=== PATIENT | male | born 1975 | race African-American/Black ===

== ENCOUNTER 2020-10-01 10:31 | Inpatient (IN) | payer BC ==
[2020-10-01 11:39] LABS: Hemoglobin 13.7 g/dL (14.0-18.0); Mean Corpuscular HGB CONC 30.7 g/dL (32.0-36.0); Mean Corpuscular Hemoglobin 24.1 pg (27.0-31.0); Mean Corpuscular Volume 78.6 fL (78.0-98.0); Mean Platelet Volume 9.7 fL (7.4-10.4); Platelet Count 184 thou/uL (130-400); RBC Distribution Width 12.3 % (11.5-14.5); Red Blood Cell (RBC) Count 5.67 mill/uL (4.70-6.10); White Blood Cell (WBC) Count 2.4 thou/uL (4.8-10.8)
[2020-10-01 11:54] LABS: ALT (SGPT) 18 U/L (8-55); AST (SGOT) 23 U/L (5-34); Alkaline Phosphatase 67 U/L (40-110); Anion Gap 12 mmol/L (10-20); BUN (Urea Nitrogen) 19 mg/dL (8.9-20.6); Bilirubin, Total 0.6 mg/dL (0.2-1.2); CK (CPK) 163 U/L (30-200); Calc. Creatinine Clearance 0 mL/min (70-130); Calcium 9.3 mg/dL (7.8-10.44); Carbon Dioxide 27 mmol/L (22-29); Chloride 103 mmol/L (98-107); Globulin 3.8 g/dL (2.4-3.5); Glucose 104 mg/dL (70-105); Potassium 3.9 mmol/L (3.5-5.1); Protein, Total 7.8 g/dL (6.0-8.3); Sodium 138 mmol/L (136-145)
[2020-10-01 12:09] LABS: Eosinophils 7 % (0-10); Lymphocytes 27 % (21-51); MDiff Complete? YES; Microcytosis SLIGHT = 6-15 cells (100X) (0-5/hpf); Monocytes 16 % (0-10); Neutrophil 47 % (42-75); Platelet Morphology Comment Appears Adequate; Polychromasia SLIGHT = 2-3 cells (100X) (0-2/hpf)
[2020-10-01 12:14] LABS: CKMB 2.6 ng/mL (0-6.6)
[2020-10-01 12:35] LABS: Acetaminophen Less than 6.0 mcg/mL (10.0-30.0); Alcohol Less than 10 mg/dL (Less than 10); Salicylate Less than 8.0 mg/dL (15.0-30.0)
[2020-10-01] MEDS ORDERED: Nitroglycerin 2% Ointment 1 INCH/1 GM Packet ONE (12:47)
[2020-10-01] MEDS ORDERED: Aspirin Chewable 81 MG TAB ONE (12:47)
[2020-10-01] MEDS ORDERED: hydrALAZINE 20 MG/ML VIAL ONE (13:12)
[2020-10-01 13:53] LABS: Amphetamine Not Detected (NotDetected); Barbiturates Screen Not Detected (NotDetected); Benzodiazepine Screen Not Detected (NotDetected); Cocaine Metabolite Screen Not Detected (NotDetected); Medtox Control Line Valid? VALID (VALID); Medtox Reader # READER 1; Methadone Not Detected (NotDetected); Methamphetamine Not Detected (NotDetected); Opiate Screen Not Detected (NotDetected); Oxycodone Screen Not Detected (NotDetected); Phencyclidine (PCP) Not Detected (NotDetected); THC/Cannabinoid Screen Not Detected (NotDetected); Tricyclic Screen Not Detected (NotDetected)
[2020-10-01] MEDS ORDERED: Acetaminophen 650 MG Suppository PR PRN (14:06)
[2020-10-01] MEDS ORDERED: Guaifenesin DM 100-10/5 ML UDCUP PO PRN (14:06)
[2020-10-01] MEDS ORDERED: Enalaprilat Dihydrate 1.25 MG/ML VIAL SLOW IVP PRN (14:12)
[2020-10-01] MEDS ORDERED: Amlodipine 5 MG TAB PO SCH (14:15)
[2020-10-01] MEDS ORDERED: Amlodipine 5 MG TAB ONE (14:17)
[2020-10-01 14:25] LABS: SARS-CoV-2 NAA Rapid Test Not Detected (NotDetected)
[2020-10-01 15:01] VITALS: BMI 27.2
[2020-10-01] MEDS: Sodium Chloride 0.9% 1,000 ML IV SCH (15:48)
[2020-10-01 15:54] LABS: Troponin I 0.092 ng/mL (< 0.028)
[2020-10-01] MEDS ORDERED: Albuterol 200 PUFF (6.7GM INHALER) INH PRN (16:23)
[2020-10-01 17:47] LABS: Troponin I 0.106 ng/mL (< 0.028)
[2020-10-01 20:44] LABS: Hemoglobin A1c 4.8 % (4.0-6.0)
[2020-10-01 21:21] LABS: CKMB 2.2 ng/mL (0-6.6)
[2020-10-01] MEDS: Heparin 5,000 UNITS/ML VIAL SC SCH (21:28)
[2020-10-01] MEDS: Nitroglycerin 2% Ointment 1 INCH/1 GM Packet TOP SCH (21:28)
[2020-10-02] MEDS: Acetaminophen 325 MG TAB PO PRN ×2 (00:11→09:25)
[2020-10-02 01:04] LABS: CKMB 2.1 ng/mL (0-6.6)
[2020-10-02] MEDS: Sodium Chloride 0.9% 1,000 ML IV SCH (05:06)
[2020-10-02] MEDS: hydrALAZINE 20 MG/ML VIAL SLOW IVP PRN (05:06)
[2020-10-02] MEDS: Nitroglycerin 2% Ointment 1 INCH/1 GM Packet TOP SCH ×2 (05:06→14:17)
[2020-10-02 05:35] LABS: Anion Gap 15 mmol/L (10-20); BUN (Urea Nitrogen) 16 mg/dL (8.9-20.6); Calc. Creatinine Clearance 86 mL/min (70-130); Calcium 8.2 mg/dL (7.8-10.44); Carbon Dioxide 18 mmol/L (22-29); Chloride 108 mmol/L (98-107); Cholesterol 140 mg/dl (< 200 Desired); Glucose 87 mg/dL (70-105); HDL Cholesterol 46 mg/dL (>60 Neg Risk); LDL Cholesterol, Calculated 78 mg/dL; Potassium 4.2 mmol/L (3.5-5.1); Sodium 137 mmol/L (136-145); Triglycerides 81 mg/dL (Less than 150)
[2020-10-02 07:50] LABS: #Eosinphils 0.1 thou/uL (0.0-0.7); #Lymphocytes 0.8 thou/uL (1.20-3.40); #Monocytes 0.4 thou/uL (0.11-0.59); #Neutrophils 1.9 thou/uL (1.40-6.50); %Basophils 1.2 % (0.0-1.0); %Eosinophils 2.8 % (0.0-10.0); %Lymphocytes 25.3 % (21.0-51.0); %Monocytes 12.9 % (0.0-10.0); %Neutrophils 57.8 % (42.0-75.0); Hemoglobin 12.5 g/dL (14.0-18.0); Mean Corpuscular HGB CONC 30.8 g/dL (32.0-36.0); Mean Corpuscular Volume 77.9 fL (78.0-98.0); Mean Platelet Volume 9.6 fL (7.4-10.4); Platelet Count 171 thou/uL (130-400); RBC Distribution Width 12.2 % (11.5-14.5); White Blood Cell (WBC) Count 3.2 thou/uL (4.8-10.8)
[2020-10-02] MEDS: Aspirin Chewable 81 MG TAB PO SCH (09:24)
[2020-10-02] MEDS: Heparin 5,000 UNITS/ML VIAL SC SCH (09:24)
[2020-10-02] MEDS ORDERED: hydrALAZINE 20 MG/ML VIAL ONE (11:55)
[2020-10-02] MEDS ORDERED: NIFEdipine XL 60 MG TAB PO SCH (14:15)
[2020-10-02] MEDS: cloNIDine 0.1 MG TAB PO PRN ×2 (16:14→20:33)
[2020-10-02] MEDS ORDERED: Labetalol HCl 100 MG/20 ML VIAL SLOW IVP SCH (23:30)
[2020-10-03] MEDS ORDERED: Lisinopril 5 MG TAB PO SCH (09:00)
[2020-10-03] MEDS: Aspirin Chewable 81 MG TAB PO SCH (09:38)
[2020-10-03] MEDS: NIFEdipine XL 60 MG TAB PO SCH (09:38)
[2020-10-03] MEDS ORDERED: Albuterol 200 PUFF (6.7GM INHALER) INH PRN (12:33)
[2020-10-03] MEDS ORDERED: Albuterol 200 PUFF (6.7GM INHALER) INH SCH (14:30)
[2020-10-03] MEDS ORDERED: Multivit, Therapeutic 1 TAB PO SCH (21:00)
[2020-10-04 04:47] LABS: #Eosinphils 0.2 thou/uL (0.0-0.7); #Lymphocytes 1.2 thou/uL (1.20-3.40); #Monocytes 0.5 thou/uL (0.11-0.59); #Neutrophils 1.8 thou/uL (1.40-6.50); %Basophils 1.2 % (0.0-1.0); %Eosinophils 6.3 % (0.0-10.0); %Lymphocytes 32.7 % (21.0-51.0); %Monocytes 11.9 % (0.0-10.0); Hemoglobin 13.2 g/dL (14.0-18.0); Mean Corpuscular HGB CONC 31.3 g/dL (32.0-36.0); Mean Corpuscular Hemoglobin 24.7 pg (27.0-31.0); Mean Corpuscular Volume 78.8 fL (78.0-98.0); Mean Platelet Volume 10.1 fL (7.4-10.4); Platelet Count 175 thou/uL (130-400); RBC Distribution Width 12.2 % (11.5-14.5); Red Blood Cell (RBC) Count 5.35 mill/uL (4.70-6.10); White Blood Cell (WBC) Count 3.8 thou/uL (4.8-10.8)
[2020-10-04] MEDS: hydrALAZINE 20 MG/ML VIAL SLOW IVP PRN (04:56)
[2020-10-04 05:11] LABS: Anion Gap 13 mmol/L (10-20); BUN (Urea Nitrogen) 18 mg/dL (8.9-20.6); Calc. Creatinine Clearance 84 mL/min (70-130); Calcium 8.9 mg/dL (7.8-10.44); Carbon Dioxide 23 mmol/L (22-29); Chloride 104 mmol/L (98-107); Glucose 89 mg/dL (70-105); Potassium 3.8 mmol/L (3.5-5.1); Sodium 136 mmol/L (136-145)
[2020-10-04] MEDS: Acetaminophen 325 MG TAB PO PRN (06:08)
[2020-10-04] MEDS: Aspirin Chewable 81 MG TAB PO SCH (08:32)
[2020-10-04] MEDS: NIFEdipine XL 60 MG TAB PO SCH (08:32)
[2020-10-04] MEDS ORDERED: Lisinopril 5 MG TAB PO SCH (09:00)
[2020-10-04 11:38] VITALS: BP 152/88; TEMP 97.8
== END 2020-10-04 14:10 | disposition home or self-care (01) | DRG 281 ==
LOC: ERS 10:31 → ERHOLD 12:58 → 2NO 14:53
PROVIDERS: ADMIT Internal Medicine; ATTEND Internal Medicine
DX: I16.1 Hypertensive emergency (principal); I21.A1 Myocardial infarction type 2; N17.9 Acute kidney failure, unspecified; J45.20 Mild intermittent asthma, uncomplicated; F17.210 Nicotine dependence, cigarettes, uncomplicated; I16.0 Hypertensive urgency; D72.819 Decreased white blood cell count, unspecified; N18.2 Chronic kidney disease, stage 2 (mild); I08.1 Rheumatic disorders of both mitral and tricuspid valves; I13.10 Hypertensive heart and chronic kidney disease without heart failure, with stage 1 through stage 4 chronic kidney disease, or unspecified chronic kidney disease
CPT/HCPCS: 0240U; 36415; 70450; 71045; 80048; 80053; 80061; 80306; 80307; 82550; 82553; 83036; 83735; 84443; 84484; 85025; 93005; 93306; 94640; 94760; 96374; 96376; J0360; J1644; J7620

== ENCOUNTER 2022-08-11 06:54 | Inpatient (IN) | payer BC ==
[2022-08-11 08:08] LABS: #Eosinphils 0.1 thou/uL (0.0-0.7); #Lymphocytes 1.1 thou/uL (1.20-3.40); #Monocytes 0.3 thou/uL (0.11-0.59); #Neutrophils 3.6 thou/uL (1.40-6.50); %Basophils 0.7 % (0.0-1.0); %Eosinophils 1.9 % (0.0-10.0); %Lymphocytes 21.6 % (21.0-51.0); %Monocytes 5.8 % (0.0-10.0); %Neutrophils 69.9 % (42.0-75.0); Mean Corpuscular HGB CONC 30.2 g/dL (32.0-36.0); Mean Corpuscular Volume 82.8 fl (78.0-98.0); Platelet Count 181 10x3/uL (130-400); RBC Distribution Width 13.3 % (11.5-14.5); Red Blood Cell (RBC) Count 5.18 mill/uL (4.70-6.10); White Blood Cell (WBC) Count 5.2 10x3/uL (4.8-10.8)
[2022-08-11] MEDS ORDERED: Furosemide 40 MG/4 ML VIAL ONE (08:18)
[2022-08-11] MEDS ORDERED: Nitroglycerin 2% Ointment 1 INCH/1 GM Packet ONE ×2 (08:18→09:51)
[2022-08-11 08:39] LABS: ALT (SGPT) 42 U/L (8-55); AST (SGOT) 33 U/L (5-34); Albumin 3.6 g/dL (3.5-5.0); Alkaline Phosphatase 51 U/L (40-110); Anion Gap 12 mmol/L (10-20); BUN (Urea Nitrogen) 24 mg/dL (8.9-20.6); Bilirubin, Total 0.8 mg/dL (0.2-1.2); Calc. Creatinine Clearance 0 mL/min (70-130); Carbon Dioxide 22 mmol/L (22-29); Chloride 113 mmol/L (98-107); Estimated GFR 60; Globulin 2.8 g/dL (2.4-3.5); Glucose 123 mg/dL (70-105); Potassium 4.5 mmol/L (3.5-5.1); Protein, Total 6.4 g/dL (6.0-8.3); Sodium 142 mmol/L (136-145)
[2022-08-11 08:58] LABS: CKMB 11.3 ng/mL (0-6.6)
[2022-08-11] MEDS ORDERED: Aspirin Chewable 81 MG TAB ONE (09:13)
[2022-08-11] MEDS ORDERED: niCARdipine 40MG In NaCl 40 MG/200 ML BAG IVPB SCH (10:15)
[2022-08-11 10:34] LABS: HIV (1/2) Antibody/Antigen Non-Reactive (NonReactive); HIV 1/2 INDEX 0.39 S/CO (<1.00)
[2022-08-11] MEDS ORDERED: niCARdipine 25 MG/10 ML VIAL ONE (10:35)
[2022-08-11] MEDS ORDERED: niCARdipine 50 MG in Sodium Chloride 0.9% 250 ML 230 ML IV SCH (10:45)
[2022-08-11] MEDS ORDERED: niCARdipine 25 MG in Sodium Chloride 0.9% 250 ML 250 ML IVPB SCH ×2 (11:00→13:15)
[2022-08-11] MEDS ORDERED: Carvedilol 3.125 MG TAB PO SCH ×2 (11:30→17:00)
[2022-08-11 11:32] LABS: SARS-CoV-2 NAA Rapid Test Not Detected (NotDetected)
[2022-08-11 12:52] VITALS: BMI 25.3
[2022-08-11] MEDS ORDERED: Ipratropium/Albuterol 3 ML NEB NEB PRN (13:48)
[2022-08-11] MEDS ORDERED: Furosemide 40 MG/4 ML VIAL SLOW IVP SCH (14:00)
[2022-08-11] MEDS: Amlodipine 5 MG TAB PO SCH (14:04)
[2022-08-11 15:03] LABS: CKMB 12.4 ng/mL (0-6.6)
[2022-08-11 15:58] LABS: Amphetamine Not Detected (NotDetected); Barbiturates Screen Not Detected (NotDetected); Benzodiazepine Screen Not Detected (NotDetected); Cocaine Metabolite Screen Not Detected (NotDetected); Methadone Not Detected (NotDetected); Methamphetamine Not Detected (NotDetected); Opiate Screen Not Detected (NotDetected); Oxycodone Screen Not Detected (NotDetected); Phencyclidine (PCP) Not Detected (NotDetected); THC/Cannabinoid Screen Not Detected (NotDetected); Tricyclic Screen Not Detected (NotDetected)
[2022-08-11] MEDS: Nitroglycerin 2% Ointment 1 INCH/1 GM Packet TOP SCH (20:17)
[2022-08-11] MEDS ORDERED: Morphine 2 MG/ML VIAL SLOW IVP PRN (20:22)
[2022-08-11] MEDS ORDERED: Electrolyte Replacement Protocol 1 EACH FS SCH (20:45)
[2022-08-11 21:23] LABS: Phosphorus 2.5 mg/dL (2.3-4.7)
[2022-08-12 04:11] LABS: #Eosinphils 0.2 thou/uL (0.0-0.7); #Lymphocytes 1.3 thou/uL (1.20-3.40); #Monocytes 0.4 thou/uL (0.11-0.59); #Neutrophils 4.8 thou/uL (1.40-6.50); %Basophils 0.7 % (0.0-1.0); %Eosinophils 2.8 % (0.0-10.0); %Lymphocytes 18.8 % (21.0-51.0); %Monocytes 6.2 % (0.0-10.0); %Neutrophils 71.5 % (42.0-75.0); Hemoglobin 13.9 g/dL (14.0-18.0); Mean Corpuscular HGB CONC 31.6 g/dL (32.0-36.0); Mean Corpuscular Hemoglobin 25.7 pg (27.0-31.0); Mean Corpuscular Volume 81.5 fl (78.0-98.0); Mean Platelet Volume 10.2 fL (7.4-10.4); Platelet Count 178 10x3/uL (130-400); RBC Distribution Width 13.2 % (11.5-14.5); Red Blood Cell (RBC) Count 5.39 mill/uL (4.70-6.10); White Blood Cell (WBC) Count 6.7 10x3/uL (4.8-10.8)
[2022-08-12 04:30] LABS: Anion Gap 11 mmol/L (10-20); BUN (Urea Nitrogen) 15 mg/dL (8.9-20.6); Calc. Creatinine Clearance 76 mL/min (70-130); Calcium 9.4 mg/dL (7.8-10.44); Carbon Dioxide 25 mmol/L (22-29); Cardiac Risk 3.6 (Less than 4.5); Chloride 105 mmol/L (98-107); Cholesterol 173 mg/dl (< 200 Desired); Estimated GFR 77; Glucose 93 mg/dL (70-105); HDL Cholesterol 48 mg/dL (>60 Neg Risk); LDL Cholesterol, Calculated 111 mg/dL; Potassium 3.8 mmol/L (3.5-5.1); Sodium 137 mmol/L (136-145); Triglycerides 71 mg/dL (Less than 150)
[2022-08-12] MEDS ORDERED: Labetalol HCl 100 MG/20 ML VIAL SLOW IVP PRN (07:44)
[2022-08-12] MEDS ORDERED: Magnesium 2 GM/50 ML(in water) 2 GM in Premix Bag 1 BAG IVPB SCH (08:00)
[2022-08-12] MEDS ORDERED: Furosemide 40 MG/4 ML VIAL SLOW IVP SCH (09:00)
[2022-08-12] MEDS: Carvedilol 6.25 MG TAB PO SCH ×2 (09:35→17:55)
[2022-08-12] MEDS: Nitroglycerin 2% Ointment 1 INCH/1 GM Packet TOP SCH ×2 (09:35→20:31)
[2022-08-12] MEDS: Aspirin 81 mg Enteric Coated Tablet PO SCH (09:35)
[2022-08-12] MEDS: Amlodipine 5 MG TAB PO SCH (14:58)
[2022-08-13 04:27] LABS: Anion Gap 17 mmol/L (10-20); BUN (Urea Nitrogen) 14 mg/dL (8.9-20.6); Calc. Creatinine Clearance 74 mL/min (70-130); Calcium 8.9 mg/dL (7.8-10.44); Carbon Dioxide 18 mmol/L (22-29); Chloride 104 mmol/L (98-107); Estimated GFR 74; Glucose 103 mg/dL (70-105); Potassium 4.1 mmol/L (3.5-5.1); Sodium 135 mmol/L (136-145)
[2022-08-13] MEDS: Nitroglycerin 2% Ointment 1 INCH/1 GM Packet TOP SCH ×3 (10:54→21:30)
[2022-08-13] MEDS: Aspirin 81 mg Enteric Coated Tablet PO SCH (10:54)
[2022-08-13] MEDS: Furosemide 40 MG TAB PO SCH (10:54)
[2022-08-13] MEDS: Carvedilol 6.25 MG TAB PO SCH ×2 (10:56→17:15)
[2022-08-13] MEDS: Amlodipine 5 MG TAB PO SCH (13:20)
[2022-08-13] MEDS ORDERED: Nitroglycerin 2% Ointment 1 INCH/1 GM Packet ONE (21:26)
[2022-08-14] MEDS ORDERED: Carvedilol 6.25 MG TAB PO SCH (08:00)
[2022-08-14] MEDS: Aspirin 81 mg Enteric Coated Tablet PO SCH (09:02)
[2022-08-14] MEDS: Furosemide 40 MG TAB PO SCH (09:02)
[2022-08-14] MEDS: Nitroglycerin 2% Ointment 1 INCH/1 GM Packet TOP SCH (09:02)
[2022-08-14 15:20] VITALS: BP 141/98; TEMP 97.8
== END 2022-08-14 16:08 | disposition home or self-care (01) | DRG 280 ==
LOC: ERS 06:54 → ERHOLD 09:54 → OBSVTOIN 09:54 → CCU 11:52 → 2NO 08-13 18:14
PROVIDERS: ADMIT Internal Medicine; ATTEND Family Medicine
DX: I11.0 Hypertensive heart disease with heart failure (principal); I50.43 Acute on chronic combined systolic (congestive) and diastolic (congestive) heart failure; I21.A1 Myocardial infarction type 2; I16.1 Hypertensive emergency; N17.9 Acute kidney failure, unspecified; I31.39 Other pericardial effusion (noninflammatory); I42.0 Dilated cardiomyopathy; I43 Cardiomyopathy in diseases classified elsewhere; I16.0 Hypertensive urgency; E78.00 Pure hypercholesterolemia, unspecified; F17.210 Nicotine dependence, cigarettes, uncomplicated; J45.20 Mild intermittent asthma, uncomplicated; Z20.822 Contact with and (suspected) exposure to COVID-19; I08.1 Rheumatic disorders of both mitral and tricuspid valves; Z79.899 Other long term (current) drug therapy; Z91.14 Patient's other noncompliance with medication regimen; Z82.49 Family history of ischemic heart disease and other diseases of the circulatory system
CPT/HCPCS: 36415; 71045; 74018; 80048; 80053; 80061; 80306; 82553; 83735; 83880; 84100; 84484; 85025; 87389; 93005; 93306; 94640; 96374; J1650; J1940; J2272; J3475; J7050; J7611

== ENCOUNTER 2023-05-12 13:01 | Emergency (ER) | payer BC ==
[2023-05-12] MEDS ORDERED: Ipratropium/Albuterol 3 ML NEB ONE ×2 (14:30→15:18)
== END 2023-05-12 15:31 | disposition home or self-care (01) ==
LOC: ERS 13:01
DX: J45.909 Unspecified asthma, uncomplicated (principal); J06.9 Acute upper respiratory infection, unspecified; I11.0 Hypertensive heart disease with heart failure; I50.9 Heart failure, unspecified; F17.210 Nicotine dependence, cigarettes, uncomplicated; Z79.899 Other long term (current) drug therapy; Z79.82 Long term (current) use of aspirin
CPT/HCPCS: 71045; 94640; J7620

== ENCOUNTER 2023-05-24 01:18 | Emergency (ER) | payer BC ==
[2023-05-24] MEDS ORDERED: methylPREDNISolone Sod Succ/PF 125 MG/2 ML VIAL ONE (03:44)
[2023-05-24] MEDS ORDERED: diphenhydrAMINE 50 MG/ML VIAL ONE (03:44)
[2023-05-24] MEDS ORDERED: Famotidine/PF 20 mg/2ml Vial ONE (03:44)
== END 2023-05-24 05:55 | disposition home or self-care (01) ==
LOC: ERS 01:18
DX: L23.9 Allergic contact dermatitis, unspecified cause (principal); I11.0 Hypertensive heart disease with heart failure; I50.9 Heart failure, unspecified; F17.210 Nicotine dependence, cigarettes, uncomplicated; Z79.899 Other long term (current) drug therapy; Z79.82 Long term (current) use of aspirin
CPT/HCPCS: 96374; 96375; J1200; J2930; S0028